=== PATIENT | male | born 1965 | race Caucasian/White ===

== ENCOUNTER 2020-04-25 13:48 | Emergency (ER) | payer BC ==
[~2020-04-25] VITALS: Ht 180.3 cm; Wt 104.5 kg
[2020-04-25 14:01] VITALS: TEMP 98
[2020-04-25] MEDS ORDERED: BYSTOLIC5 MG PO (14:24)
[2020-04-25] MEDS ORDERED: MIDAMOR 5MG TAB5 MG PO (14:25)
[2020-04-25] MEDS ORDERED: COZAAR 25MG25 MG/TAB PO (14:25)
[2020-04-25 15:07] VITALS: BP 114/88; PULSE 85
== END 2020-04-25 15:09 | disposition home or self-care (01) ==
LOC: COL.ER 13:48
DX: R55 Syncope and collapse (principal)